=== PATIENT | male | born 1960 | race Caucasian/White ===

== ENCOUNTER 2016-08-06 08:52 | Emergency (ER) | payer OTHER ==
[2016-08-06 10:01] VITALS: BP 149/99
== END 2016-08-06 10:01 | disposition home or self-care (01) ==
LOC: ED 08:52
DX: J06.9 Acute upper respiratory infection, unspecified (principal); J32.9 Chronic sinusitis, unspecified; E78.00 Pure hypercholesterolemia, unspecified; E78.5 Hyperlipidemia, unspecified

== ENCOUNTER 2017-06-28 19:48 | Emergency (ER) | payer OTHER ==
[~2017-06-28] VITALS: Ht 170.2 cm; Wt 85.3 kg
[2017-06-28 20:05] VITALS: Ht 170.2 cm; Wt 85.3 kg
[2017-06-28 21:13] VITALS: BP 117/89
== END 2017-06-28 21:13 | disposition home or self-care (01) ==
LOC: ED 19:48
DX: T15.12XA Foreign body in conjunctival sac, left eye, initial encounter (principal); H53.8 Other visual disturbances; X58.XXXA Exposure to other specified factors, initial encounter; Y93.89 Activity, other specified; Y92.89 Other specified places as the place of occurrence of the external cause; Y99.8 Other external cause status

== ENCOUNTER 2017-07-27 02:56 | Emergency (ER) | payer OTHER ==
[~2017-07-27] VITALS: Ht 172.7 cm; Wt 82.1 kg
[2017-07-27 03:07] VITALS: Ht 172.7 cm; Wt 82.1 kg
[2017-07-27 05:17] LABS: BASOPHIL % 0.7 % (0-2); PLATELET COUNT 318 x10^3mcL (130-400); RED CELL DISTRIBUTION WIDTH 13.6 % (11.5-14.5)
[2017-07-27 05:29] LABS: CALCIUM 8.7 mg/dL (8.5-10.1); CARBON DIOXIDE 25.6 mmol/L (21-32); CHLORIDE SERUM 109 mmol/L (98-107); CREATININE SERUM 0.9 mg/dL (0.7-1.3); GFR1 > 60 mL/min; GLUCOSE SERUM 135 mg/dL (74-106); POTASSIUM SERUM 3.5 mmol/L (3.5-5.1); SODIUM SERUM 141 mmol/L (136-145)
[2017-07-27 05:33] LABS: ALBUMIN 3.8 g/dL (3.4-5.0); ALKALINE PHOSPHATASE 87 U/L (46-116); ALT/SGPT 38 U/L (16-63); AST/SGOT 26 U/L (15-37); BILIRUBIN TOTAL 0.65 mg/dL (0.20-1.00); TOTAL PROTEIN, SERUM 7.1 g/dL (6.4-8.2)
[2017-07-27 07:55] VITALS: BP 138/76
== END 2017-07-27 07:55 | disposition home or self-care (01) ==
LOC: ED 02:56
PROVIDERS: Emergency Medicine
DX: R07.89 Other chest pain (principal); J30.9 Allergic rhinitis, unspecified; J01.90 Acute sinusitis, unspecified; E78.00 Pure hypercholesterolemia, unspecified; K21.9 Gastro-esophageal reflux disease without esophagitis
CPT/HCPCS: 36415; 85378